=== PATIENT | female | born 1960 | race Hispanic/Latino ===

== ENCOUNTER 2016-07-22 21:42 | Emergency (ER) | payer MEDICARE ==
[2016-07-22 21:48] VITALS: BP 117/76; PULSE 70; RESP 18; TEMP 97.8; O2SAT 98
--- NOTE | 2016-07-22 21:58 | ED PDOC ---
Upper Extremity Pain/Injury Time Seen by Provider: 07/22/16 21:53 Chief Complaint (Nursing): Upper Extremity Problem/Injury Chief Complaint (Provider): left wrist pain History Per: Patient History/Exam Limitations: no limitations Onset/Duration Of Symptoms: Hrs (morning ) Current Symptoms Are (Timing): Still Present Additional Complaint(s): Aarti Raphael is a 55 year old female, with a previous medical history of arthritis, who presents to the ED with complaints of left wrist pain secondary to pulling a dog on a leash earlier today. Pt reports dog was running and she was pulling the leash with her left hand. Pt reports pain and swelling to the wrist. Pt reports to applying ice on the wrist throughout the day but pain worsened. Pt reports no numbness, tingling or weakness. PMD: Sergo Hawkins MD Past Medical History Vital Signs: Last Vital Signs Temp 97.8 F 07/22/16 21:46 Pulse 70 07/22/16 21:46 Resp 18 07/22/16 21:46 BP 117/76 07/22/16 21:46 Pulse Ox 98 07/22/16 21:46 - Medical History PMH: Asthma, Back Problems, Bronchitis, Migraine, Chronic Pain Denies: Chronic Kidney Disease - Family History Family History: States: Hypertension - Home Medications Home Medications: Ambulatory Orders Medication Instructions Recorded Cyclobenzaprine HCl [Flexeril] 10 mg PO TID PRN 12/18/13 Acetaminophen/Oxycodone Hydr 1 tab PO TID PRN #6 tab 12/23/13 [Percocet 325 mg-5 mg] Acetaminophen/Oxycodone Hydr 1 tab PO Q6H PRN #15 tab 01/13/14 [Percocet 325 mg-5 mg] - Allergies Allergies/Adverse Reactions: Allergies Allergy/AdvReac Type Severity Reaction Status Date / Time No Known Allergies Allergy Verified 12/18/13 17:18 Review of Systems ROS Statement: Except As Marked, All Systems Reviewed And Found Negative Musculoskeletal: Positive for: Hand Pain (left wrist) Neurological: Negative for: Numbness, Other (tingling ) Physical Exam - Reviewed Nursing Documentation Reviewed: Yes Vital Signs Reviewed: Yes - Physical Exam Appears: Positive for: Well, Non-toxic, No Acute Distress Head Exam: Positive for: ATRAUMATIC, NORMAL INSPECTION, NORMOCEPHALIC Skin: Positive for: Normal Color, Warm, DRY Cardiovascular/Chest: Positive for: Regular Rate, Rhythm Respiratory: Positive for: CNT, Normal Breath Sounds Extremity: Positive for: Tenderness (to palpation of the MCP ), Capillary Refill (< 2 seconds ), Other (sensations intact. neurovascularly intact. ). Negative for: Normal ROM (pain with flexion of the left wrist ), Calf Tenderness , Deformity Neurologic/Psych: Positive for: Alert, Oriented - ECG O2 Sat by Pulse Oximetry: 98 (RA) Pulse Ox Interpretation: Normal Medical Decision Making Medical Decision Making: Initial Impression: Sprain vs Fracture Initial Plan: * x-ray of the left wrist * reevaluation xray: NAD dx: srapin given wrist velco splint volar f/u with pmd motrin for pain Scribe Attestation: Documented by Desiree Kramer, acting as a scribe for Court Loja PA-C. Provider Scribe Attestation: All medical record entries made by the Scribe were at my direction and personally dictated by me. I have reviewed the chart and agree that the record accurately reflects my personal performance of the history, physical exam, medical decision making, and the department course for this patient. I have also personally directed, reviewed, and agree with the discharge instructions and disposition Disposition - Clinical Impression Clinical Impression: Wrist injury - Patient ED Disposition Is Patient to be Admitted: No Counseled Patient/Family Regarding: Studies Performed, Diagnosis, Need For Followup - Disposition Disposition: Routine/Home Disposition Time: 22:18 Condition: STABLE Instructions: Wrist Injury (ED)
--- NOTE | 2016-07-23 06:38 | RAD ---
PROCEDURE: Right Wrist Radiographs. HISTORY: wrist pain COMPARISON: None. FINDINGS: BONES: Normal. No fracture. JOINTS: Normal. No dislocation. SOFT TISSUES: Normal. OTHER FINDINGS: None. IMPRESSION: Normal right wrist radiographs.
== END 2016-07-22 22:22 | disposition home or self-care (01) ==
LOC: H.ER 21:42
DX: S69.92XA Unspecified injury of left wrist, hand and finger(s), initial encounter (principal); X50.1XXA Overexertion from prolonged static or awkward postures, initial encounter; Y92.89 Other specified places as the place of occurrence of the external cause

== ENCOUNTER 2016-09-18 13:41 | Emergency (ER) | payer MEDICARE ==
[2016-09-18 13:55] VITALS: BP 131/84; RESP 16; TEMP 98.4; O2SAT 100
[2016-09-18 14:06] VITALS: PULSE 70
--- NOTE | 2016-09-18 14:15 | ED PDOC ---
HPI: Back Time Seen by Provider: 09/18/16 13:53 Chief Complaint (Nursing): Chest Pain Chief Complaint (Provider): Back Pain History Per: Patient History/Exam Limitations: no limitations Onset/Duration Of Symptoms: Days Current Symptoms Are (Timing): Still Present Additional Complaint(s): 56 y/o female with a past medical history of chronic back pain presents to the emergency department with a complaint of an acute exacerbation of left-sided back pain for the past few days. Reports using Fentanyl patch and taking Oxycodone without the relief of symptoms. Denies shortness of breath, cough, fever, peripheral weakness or tingling. Past Medical History Reviewed: Historical Data, Nursing Documentation, Vital Signs Vital Signs: Last Vital Signs Temp 98.4 F 09/18/16 13:50 Pulse 70 09/18/16 13:59 Resp 16 09/18/16 13:50 BP 131/84 09/18/16 13:59 Pulse Ox 100 09/18/16 13:50 - Medical History PMH: Asthma, Back Problems, Bronchitis, Migraine, Chronic Pain Denies: Chronic Kidney Disease - Surgical History Other surgeries: Cervical Herniated Disc Repair - Family History Family History: States: Hypertension - Social History Alcohol: None Drugs: Denies - Immunization History Hx Tetanus Toxoid Vaccination: No Hx Influenza Vaccination: No Hx Pneumococcal Vaccination: No - Home Medications Home Medications: Ambulatory Orders Medication Instructions Recorded Cyclobenzaprine HCl [Flexeril] 10 mg PO TID PRN 12/18/13 Acetaminophen/Oxycodone Hydr 1 tab PO TID PRN #6 tab 12/23/13 [Percocet 325 mg-5 mg] Acetaminophen/Oxycodone Hydr 1 tab PO Q6H PRN #15 tab 01/13/14 [Percocet 325 mg-5 mg] traMADol [Ultram] 50 mg PO Q8 #10 tab 09/18/16 - Allergies Allergies/Adverse Reactions: Allergies Allergy/AdvReac Type Severity Reaction Status Date / Time No Known Allergies Allergy Verified 09/18/16 13:49 Review of Systems ROS Statement: Except As Marked, All Systems Reviewed And Found Negative Constitutional: Negative for: Fever Respiratory: Negative for: Cough, Shortness of Breath Musculoskeletal: Positive for: Back Pain (Left-sided ) Neurological: Negative for: Other (peripheral weakness or tingling ) Physical Exam - Reviewed Nursing Documentation Reviewed: Yes Vital Signs Reviewed: Yes - Physical Exam Appears: Positive for: Non-toxic, No Acute Distress Head Exam: Positive for: ATRAUMATIC, NORMOCEPHALIC Skin: Positive for: Normal Color, Warm, Dry Cardiovascular/Chest: Positive for: Regular Rate, Rhythm. Negative for: Murmur Respiratory: Positive for: Normal Breath Sounds (Lungs are clear bilaterally). Negative for: Accessory Muscle Use, Respiratory Distress Back: Positive for: Other (Tenderness left infrascapular parathoracic area). Negative for: Normal Inspection (No midline spinal tender) Neurologic/Psych: Positive for: Alert, Oriented (x3). Negative for: Other (No focal deficits) - ECG O2 Sat by Pulse Oximetry: 100 (RA) Pulse Ox Interpretation: Normal Medical Decision Making Medical Decision Making: Time: 13:53 Initial impression: Acute Exacerbation of Chronic Back Pain Initial plan: --Chest Two Views (PA/LAT) (RAD) --Revaluation Scribe Attestation: Documented by Fadumo Lu, acting as a scribe for Shane Lopez MD. Provider Scribe Attestation: All medical record entries made by the Scribe were at my direction and personally dictated by me. I have reviewed the chart and agree that the record accurately reflects my personal performance of the history, physical exam, medical decision making, and the department course for this patient. I have also personally directed, reviewed, and agree with the discharge instructions and disposition. Disposition - Clinical Impression Clinical Impression: Chronic back pain - Patient ED Disposition Is Patient to be Admitted: No Counseled Patient/Family Regarding: Studies Performed, Diagnosis, Need For Followup, Rx Given - Disposition Disposition: Routine/Home Disposition Time: 15:17 Condition: FAIR Prescriptions: traMADol [Ultram] 50 mg PO Q8 #10 tab Instructions: Chronic Back Pain (ED)
--- NOTE | 2016-09-18 15:35 | RAD ---
HISTORY: left sided back pain COMPARISON: Chest x-ray performed 02/10/14 TECHNIQUE: Chest PA and lateral FINDINGS: LUNGS: No focal consolidation. Please note that chest x-ray has limited sensitivity for the detection of pulmonary masses. PLEURA: No significant pleural effusion identified. No definite pneumothorax . CARDIOVASCULAR: Heart size appears within normal limits. Ectatic aorta. OSSEOUS STRUCTURES: Mild degenerative changes. VISUALIZED UPPER ABDOMEN: Unremarkable. OTHER FINDINGS: None. IMPRESSION: No focal consolidation, significant pleural effusion, or definite pneumothorax identified.
--- NOTE | 2016-09-22 19:18 | CARD ---
APPROVED REPORT EKG Measurement Heart [id number] <Conclusion> Normal sinus rhythm Left axis deviation Nonspecific ST and T wave abnormality Abnormal ECG
== END 2016-09-18 15:38 | disposition home or self-care (01) ==
LOC: H.ER 13:41
DX: M54.9 Dorsalgia, unspecified (principal); R07.89 Other chest pain; G89.29 Other chronic pain; J45.909 Unspecified asthma, uncomplicated
CPT/HCPCS: 71020; 96372; 99282; J1885; J2270

== ENCOUNTER 2017-01-24 09:10 | Emergency (ER) | payer MEDICARE ==
[2017-01-24 09:19] VITALS: BP 133/80; PULSE 78; TEMP 97.2; O2SAT 99
[2017-01-24 09:27] VITALS: RESP 18
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
[2017-01-24] MEDS ORDERED: Sodium Chloride 0.9% 1,000 ML IV STA (09:45)
[2017-01-24 10:40] LABS: BASO % 0.6 % (0.0-2.0); EOS # 0.1 K/uL (0.0-0.7); EOS % 2.1 % (0.0-4.0); HEMATOCRIT 35.8 % (34.0-47.0); LYMPH # 2.3 K/uL (1.0-4.3); LYMPH % 34.4 % (20.0-40.0); MEAN CORPUSCULAR HEMOGLOBIN 29.4 pg (27.0-31.0); MEAN CORPUSCULAR HGB CONC 33.4 g/dL (33.0-37.0); MEAN PLATELET VOLUME 9.6 fl (7.2-11.7); MONO # 0.8 K/uL (0.0-0.8); MONO % 11.7 % (0.0-10.0); NEUT # 3.4 K/uL (1.8-7.0); NEUT % 51.2 % (50.0-75.0); RED CELL DISTRIBUTION WIDTH 14.1 % (11.5-14.5); WHITE BLOOD COUNT 6.6 K/uL (4.8-10.8)
[2017-01-24 10:51] LABS: BLOOD UREA NITROGEN 9 mg/dl (7-17); CALCIUM 9.3 mg/dL (8.4-10.2); CARBON DIOXIDE 27 mmol/L (22-30); CHLORIDE 106 mmol/L (98-107); GFR AFRICAN-AMERICAN > 60; GLUCOSE,RANDOM 101 mg/dL (65-105); POTASSIUM 3.7 MMOL/L (3.6-5.0); SODIUM 146 mmol/l (132-148)
== END 2017-01-24 12:26 | disposition home or self-care (01) ==
LOC: H.ER 09:10
DX: M62.838 Other muscle spasm (principal); K59.03 Drug induced constipation; G89.29 Other chronic pain; J45.909 Unspecified asthma, uncomplicated
CPT/HCPCS: 80048; 85025; 96374; 99283; J1885; J7040

== ENCOUNTER 2017-05-31 09:59 | Emergency (ER) | payer MEDICARE, OTHER ==
[2017-05-31 10:19] VITALS: BP 133/80; RESP 16; TEMP 98.7; O2SAT 100
[2017-05-31] MEDS ORDERED: Oxycodone/Acetaminophen 5/325 mg Tab PO STA (10:43)
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
[2017-05-31 12:43] VITALS: PULSE 76
--- NOTE | 2017-05-31 13:11 | RAD ---
PROCEDURE: Cervical Spine Radiographs. HISTORY: Posttraumatic pain COMPARISON: None. FINDINGS: BONES: Alignment maintained. No fracture. Dens Intact. Postoperative changes C5-C7. . No evidence of orthopedic hardware failure. DISC SPACES: Normal. SOFT TISSUES: Normal. No prevertebral soft tissue swelling. OTHER FINDINGS: None. IMPRESSION: No significant or acute findings to account for/ related to the clinical presentation.
== END 2017-05-31 12:53 | disposition home or self-care (01) ==
LOC: H.ER 09:59
DX: M54.2 Cervicalgia (principal); Y04.0XXA Assault by unarmed brawl or fight, initial encounter; Y92.89 Other specified places as the place of occurrence of the external cause
CPT/HCPCS: 72040; 96372; 99282; J1885

== ENCOUNTER 2018-06-07 11:21 | Emergency (ER) | payer MEDICARE ==
[2018-06-07 11:52] VITALS: BP 122/80; PULSE 71; RESP 18; TEMP 98.5; O2SAT 99
[2018-06-07] MEDS ORDERED: Morphine 4 MG/ML VIAL ONE (12:40)
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
== END 2018-06-07 13:20 | disposition home or self-care (01) ==
LOC: H.ER 11:21
DX: M54.2 Cervicalgia (principal)
CPT/HCPCS: 96372; 99283; J1885; J2270